=== PATIENT | female | born 1960 ===

== ENCOUNTER 2018-05-04 09:13 | Emergency (ER) | payer SELFPAY ==
[2018-05-04 09:54] VITALS: RESP 18
[2018-05-04] MEDS ORDERED: Naproxen 550 mg Tab PO STA (10:22)
[2018-05-04] MEDS ORDERED: Naproxen 550 mg Tab PO ONE (10:33)
--- NOTE | 2018-05-04 10:42 | C.PDOC ---
History Of Present Illness 57 year old female presents to the ED for evaluation of right knee pain for the last 1 month. The patient describes the pain as a pulsating feeling with no relief with elevation. Notes she was taking Tylenol for the right knee pain and stopped because she did not notice improvements in her pain. Patient also reports visit to the clinic for a bulge on her right upper abdomen where she was given prescriptions for blood work, ultrasounds, and x-rays, and recommended to visit the ED. Patient denies fever, nausea, numbness, tingling, and any other associated symptoms. Time Seen by Provider: 05/04/18 09:44 Chief Complaint (Nursing): Lower Extremity Problem/Injury History Per: Patient History/Exam Limitations: no limitations Onset/Duration Of Symptoms: Days Current Symptoms Are (Timing): Still Present Past Medical History Reviewed: Historical Data, Nursing Documentation, Vital Signs Vital Signs: Last Vital Signs Temp 98.8 F 05/04/18 09:32 Pulse 65 05/04/18 09:32 Resp 18 05/04/18 09:32 BP 168/93 H 05/04/18 09:32 Pulse Ox 97 05/04/18 09:32 - Medical History PMH: HTN (NO HOME MEDS) Denies: Chronic Kidney Disease - [facility] INTRODUCTION OF SERUM/TOX/VACCINE INTO MUSCLE, PERC APPROACH (04/27/17) Family History: States: Unknown Family Hx - Social History Hx Alcohol Use: No Hx Substance Use: No Review Of Systems Constitutional: Negative for: Fever, Chills Musculoskeletal: Positive for: Other (right knee pain. ) Neurological: Negative for: Weakness, Numbness, Incoordination Physical Exam - Physical Exam Appears: Well, Non-toxic Skin: Normal Color, Warm, Dry, Other (right knee: (-) erythema. (+) warm to the touch.) Head: Atraumatic, Normacephalic Neck: Normal ROM, Supple, No Other (No bulging visualized. (-) nontender.) Cardiovascular: Rhythm Regular, No Murmur Respiratory: Normal Breath Sounds, No Rales, No Rhonchi, No Wheezing Gastrointestinal/Abdominal: Normal Exam, Soft, No Tenderness Extremity: Tenderness (mild tenderness around the patella. ), No Calf Tenderness, Capillary Refill (less than 2 seconds. ), Swelling (mild.) Pulses: Left Dorsalis Pedis: Normal, Right Dorsalis Pedis: Normal Neurological/Psych: Oriented x3, Normal Speech Gait: Steady ED Course And Treatment O2 Sat by Pulse Oximetry: 97 (RA) Pulse Ox Interpretation: Normal - Other Rad X-ray RT Knee X-Ray: Viewed By Me, Read By Radiologist Interpretation: FINDINGS: BONES: Bone alignment and mineralization are normal. There is no acute displaced fracture or bone destruction. JOINTS: There is mild tricompartmental degenerative osteoarthrosis with reduced joint spaces, marginal osteophytes and tibial spiking, worse in the media compartment. JOINT EFFUSION: There is a small suprapatellar joint effusion. OTHER FINDINGS: None. IMPRESSION: No acute fracture or dislocation. Mild tricompartmental degenerative osteoarthrosis, worse in the medial compartment. Small suprapatellar joint effusion. Progress Note: Patient sent for X-ray RT Knee. Given Naproxen. X-ray was viewed by me. Rodger bandage applied to the right knee. Patient stable for discharge home and prescribed Naproxen. Patient advised to follow up with an orthopedic within 1 week. Medical Decision Making Medical Decision Making: X-ray was viewed by me. Patient stable for discharge home and prescribed Naproxen. Patient advised to follow up with an orthopedic within 1 week. Disposition Counseled Patient/Family Regarding: Studies Performed, Diagnosis, Need For Followup, Rx Given - Disposition Referrals: Drake Salmeron III, MD [Staff Provider] - [facility] [place] [facility] [Outside] Disposition: HOME/ ROUTINE Disposition Time: 10:40 Condition: GOOD Additional Instructions: FOLLOW UP WITH ORTHOPEDICS WITHIN 1 WEEK USE PAIN MEDICATION NEEDED RETURN TO EMERGENCY ROOM IF SYMPTOMS WORSEN SEGUIR CON ORTOPEDIA EN RONAK SEMANA UTILICE MEDICAMENTOS PARA EL DOLOR SEGN LO NECESARIO VUELVA A LA CECIL DE EMERGENCIA SI LOS SNTOMAS SE LACEY PROBLEMAS Prescriptions: Naproxen 375 mg PO BID PRN #20 tablet PRN Reason: pain Instructions: Knee Sprain (DC) Forms: [facility] (Central African) Print Language: LUXEMBOURGER - POA Present On Arrival: None - Clinical Impression Clinical Impression: Right knee sprain, Soft tissue injury of right knee - Scribe Statement The provider has reviewed the documentation as recorded by the Scribe (Micaela Campos) Provider Attestation: All medical record entries made by the Scribe were at my direction and personally dictated by me. I have reviewed the chart and agree that the record accurately reflects my personal performance of the history, physical exam, medical decision making, and the department course for this patient. I have also personally directed, reviewed, and agree with the discharge instructions and disposition.
[2018-05-04 10:59] VITALS: BP 182/96; PULSE 66; TEMP 98.2
--- NOTE | 2018-05-04 11:42 | RAD ---
Date of service: 05/04/2018 PROCEDURE: Right Knee Radiographs. HISTORY: RIGHT KNEE PAIN COMPARISON: None. FINDINGS: BONES: Bone alignment and mineralization are normal. There is no acute displaced fracture or bone destruction. JOINTS: There is mild tricompartmental degenerative osteoarthrosis with reduced joint spaces, marginal osteophytes and tibial spiking, worse in the media compartment. JOINT EFFUSION: There is a small suprapatellar joint effusion. OTHER FINDINGS: None. IMPRESSION: No acute fracture or dislocation. Mild tricompartmental degenerative osteoarthrosis, worse in the medial compartment. Small suprapatellar joint effusion.
[2018-05-04 12:31] VITALS: O2SAT 97
== END 2018-05-04 11:00 | disposition home or self-care (01) ==
LOC: C.ER 09:13
DX: S83.91XA Sprain of unspecified site of right knee, initial encounter (principal); X58.XXXA Exposure to other specified factors, initial encounter; I10 Essential (primary) hypertension